=== PATIENT | male | born 1955 | race Caucasian/White ===

== ENCOUNTER 2022-01-04 06:00 | Outpatient (CLI) | payer MEDICARE ==
--- NOTE | 2022-01-04 11:16 | XRAY Report ---
PROCEDURE: Foot 3 View LT INDICATIONS: FOOT PAIN TECHNIQUE: 3 views of the foot were acquired. COMPARISON: None FINDINGS: Bones: Postsurgical changes are seen from first metatarsophalangeal joint arthrodesis with 2 metallic screws. The hardware is intact. There is solid osseous fusion across the joint line. Degenerative sp urring is seen at the dorsal talonavicular joint. Soft tissues: No suspicious soft tissue calcification. IMPRESSION: Postsurgical changes from first metatarsophalangeal joint arthrodesis with solid osseous fusion acros s the joint line. No acute osseous abnormality. Reviewed by: Prince Layne MD on 01/04/2022 11:15 AM PDT Approved by: Prince Layne MD on 01/04/2022 11:15 AM PDT Station ID: [id number]
== END 2022-01-04 23:59 | disposition home or self-care (01) ==
LOC: EDSEX → DI.WOS 06:00
PROVIDERS: ATTEND Orthopaedic Surgery
DX: M79.672 Pain in left foot (principal); Z98.890 Other specified postprocedural states

== ENCOUNTER 2023-08-02 09:41 | Emergency (ER) | payer MEDICARE ==
[2023-08-02 10:06] LABS: BILIRUBIN,URINE NEGATIVE (NEGATIVE); GLUCOSE, URINE (UA) NEGATIVE (NEGATIVE); KETONES,URINE (UA) NEGATIVE (NEGATIVE); LEUKOCYTE ESTERASE, URINE NEGATIVE (NEGATIVE); NITRITE,URINE NEGATIVE (NEGATIVE); OCCULT BLOOD,URINE MODERATE (NEGATIVE); PH,URINE 8.5 PH (5.0-7.5); PROTEIN,URINE 100 mg/dL (NEGATIVE); UROBILINOGEN,URINE 1 (NORMAL) E.U./dL (NORMAL)
[2023-08-02] MEDS ORDERED: SODIUM CHLORIDE 0.9% 1,000 ML IV STA (10:08)
[2023-08-02 10:10] LABS: CLARITY,URINE CLEAR (CLEAR)
[2023-08-02 10:14] LABS: BASOPHILS # (AUTO) 0.1 10^3/uL (0.0-0.1); BASOPHILS % (AUTO) 0.8 %; EOSINOPHILS # (AUTO) 0.4 10^3/uL (0.0-0.7); EOSINOPHILS % (AUTO) 2.6 %; HCT - HEMATOCRIT 49.6 % (42.0-52.0); HGB - HEMOGLOBIN 16.6 g/dL (14.0-18.0); LYMPHOCYTES # (AUTO) 6.2 10^3/uL (1.5-3.5); LYMPHOCYTES % (AUTO) 40.2 %; MEAN CORPUSCULAR HEMOGLOBIN 28.8 pg (27.0-31.0); MEAN CORPUSCULAR HGB CONC 33.5 g/dL (32.0-36.0); MEAN PLATELET VOLUME 8.5 fL (7.4-11.4); MONOCYTES # (AUTO) 1.1 10^3/uL (0.0-1.0); NEUTROPHILS # (AUTO) 7.6 10^3/uL (1.5-6.6); NEUTROPHILS % (AUTO) 49.1 %; PLT - PLATELET COUNT 262 10^3/uL (130-450); RED BLOOD COUNT 5.77 10^6/uL (4.70-6.10); RED CELL DISTRIBUTION WIDTH 14.5 % (12.0-15.0); WHITE BLOOD COUNT 15.5 x10^3/uL (4.8-10.8)
[2023-08-02 10:17] LABS: SLIDE REVIEW? Indicated
[2023-08-02 10:21] LABS: ALBUMIN 4.3 g/dL (3.2-5.5); ALBUMIN/GLOBULIN RATIO 1.3 (1.0-2.2); CALCIUM 9.9 mg/dL (8.5-10.3); POTASSIUM 3.6 mmol/L (3.5-4.5); TOTAL PROTEIN 7.6 g/dL (6.4-8.9)
[2023-08-02 10:24] LABS: BACTERIA,URINE Few /HPF (None Seen); SQUAMOUS EPITHELIAL CELL,UR NONE SEEN (<= Few); WBC,URINE 0-3 /HPF (0-3)
[2023-08-02 10:37] LABS: WBC MORPHOLOGY (MULTIPLE) 2+ REACTIVE LYMPHS (NORMAL)
--- NOTE | 2023-08-02 10:44 | CT Report ---
PROCEDURE: ABDOMEN/PELVIS WO INDICATIONS: R flank pain TECHNIQUE: A CT scan of the abdomen and pelvis was performed without the use of intravenous contrast. Images we re recorded and evaluated at appropriate window settings. Reformats: coronal and sagittal. For radiat ion dose reduction, the following was used: automated exposure control, adjustment of mA and/or kV ac cording to patient size. COMPARISON: None. FINDINGS: Image quality: Excellent. Lung bases and heart: Unremarkable. Liver: No solid mass. Gallbladder and biliary tree: Spleen: No splenomegaly. Pancreas: No pancreatic ductal dilation. Adrenals: No adrenal nodule. Kidneys and ureters: There is right renal enlargement. Mild left and moderate right perinephric fat s een. There is moderate hydronephrosis and mild diffuse right ureteral dilatation. There is a 7 mm rig ht ureterovesical junction calculus. No left hydronephrosis nor ureteral dilatation. Bowel and peritoneum: No bowel distension. No pathologic free fluid. Lymph nodes: No central or retroperitoneal adenopathy. Vessels: No infrarenal aortic aneurysm. PELVIS Reproductive organs: Unremarkable. Bladder: Urinary bladder is decompressed. Pelvic lymph nodes: No pelvic adenopathy by size criteria. Bones: No aggressive osseous abnormality. Other: No significant ventral or inguinal hernia. IMPRESSION: 1. Right ureterovesical junction calculus associated with moderate right hydronephrosis. Reviewed by: Felicia Holcomb MD on 08/02/2023 10:43 AM [facility] Approved by: Felicia Holcomb MD on 08/02/2023 10:43 AM [facility] Station ID: [id number]
[2023-08-02] MEDS ORDERED: MORPHINE 2 MG/ML CARPUJECT IVP STA (11:34)
[2023-08-02] MEDS ORDERED: ONDANSETRON 4 MG/2 ML VIAL IVP STA (11:34)
[2023-08-02] MEDS ORDERED: KETOROLAC 30 MG/ML VIAL IVP STA (11:35)
--- NOTE | 2023-08-02 12:14 | ED Physician Documentation ---
PD HPI ABD PAIN - Stated complaint Stated Complaint: RT SIDE PX/SHAKES/COLD SWEATS - Chief complaint Chief Complaint: Abd Pain - History obtained from History obtained from: Patient - Additional information Additional information: Patient is a 68-year-old male presenting for evaluation of intermittent episodes of right flank pain since Tuesday. He reports having worse pain on Tuesday with associated nausea and an episode of emesis. He reports that the pain comes and goes. Nothing makes it better or worse. It does not wrap around to his abdomen. Denies dysuria or hematuria. Has had prior hernia surgery repair. No chest pain or shortness of air. Denies fevers. Review of Systems Constitutional: denies: Fever Cardiac: denies: Chest pain / pressure Respiratory: denies: Dyspnea GI: reports: Nausea. denies: Abdominal Pain : denies: Dysuria Musculoskeletal: reports: Back pain PD PAST MEDICAL HISTORY - Past Medical History Past Medical History: Yes GI: GERD - Past Surgical History Past Surgical History: Yes General: Other Ortho: Shoulder arthroplasty, Carpal Tunnel surgery, Spine surgery - Present Medications Home Medications: Ambulatory Orders Medication Instructions Recorded Confirmed Ezetimibe [Zetia] 10 mg PO DAILY 08/02/23 08/02/23 LORazepam [Lorazepam] 2 mg PO QPM 08/02/23 08/02/23 Omeprazole Magnesium 20 mg PO DAILY 08/02/23 08/02/23 Ondansetron Odt [Zofran] 4 mg TL Q6H PRN #10 tablet 08/02/23 Ondansetron Odt [Zofran] 4 mg TL Q6H PRN #10 tablet 08/02/23 Oxycodone HCl/Acetaminophen 1 each PO Q6H PRN #14 tablet 08/02/23 [Percocet 5-325 mg Tablet] Sertraline HCl 100 mg PO DAILY 08/02/23 08/02/23 Tamsulosin [Flomax] 0.4 mg PO DAILY #14 cap 08/02/23 Tamsulosin [Flomax] 0.4 mg PO DAILY #14 cap 08/02/23 - Allergies Allergies/Adverse Reactions: Allergies Allergy/AdvReac Type Severity Reaction Status Date / Time codeine AdvReac Nausea Verified 08/02/23 09:49 - Social History Does the pt smoke?: No Smoking Status: Never smoker Does the pt drink ETOH?: No Does the pt have substance abuse?: No Substance Use and Type: Marijuana - Immunizations Immunizations are current?: Yes PD ED PE NORMAL - General General: Alert and oriented X 3, No acute distress, Well developed/nourished - HEENT HEENT: Atraumatic, Moist mucous membranes, Pharynx benign - Neck Neck: Supple, no meningeal sign - Cardiac Cardiac: RRR - Respiratory Respiratory: No respiratory distress - Abdomen Abdomen: Normal bowel sounds, Soft, Non tender, Non distended - Back Back: Other (Right CVA tenderness) - Derm Derm: Warm and dry - Neuro Neuro: Normal speech Results - Vitals Vitals: Vital Signs - 24 hr 08/02/23 08/02/23 08/02/23 09:45 10:09 11:48 Temperature 36.5 C Heart Rate 78 76 81 Respiratory 16 18 16 Rate Blood Pressure 190/84 H 174/89 H 185/99 H O2 Saturation 100 100 100 08/02/23 12:42 Temperature 36.2 C L Heart Rate 73 Respiratory 16 Rate Blood Pressure 148/78 H O2 Saturation 96 Oxygen O2 Source Room air - Labs Labs: Laboratory Tests 08/02/23 08/02/23 08/02/23 09:54 10:00 10:00 WBC 15.5 H RBC 5.77 Hgb 16.6 Hct 49.6 MCV 86.0 MCH 28.8 MCHC 33.5 RDW 14.5 Plt Count 262 MPV 8.5 Neut # (Auto) 7.6 H Lymph # (Auto) 6.2 H Perry # (Auto) 1.1 H Eos # (Auto) 0.4 Baso # (Auto) 0.1 Absolute Nucleated RBC 0.00 Nucleated RBC % 0.0 Manual Slide Review Indicated WBC Morphology 2+ REACTIVE LYMPHS Sodium 138 Potassium 3.6 Chloride 100 L Carbon Dioxide 24 Anion Gap 14.0 H BUN 15 Creatinine 1.0 Estimated GFR (MDRD) 74 L Glucose 151 H Calcium 9.9 Total Bilirubin 1.0 AST 17 ALT 14 Alkaline Phosphatase 107 Total Protein 7.6 Albumin 4.3 Globulin 3.3 Albumin/Globulin Ratio 1.3 Lipase 54 Urine Color YELLOW Urine Clarity CLEAR Urine pH 8.5 H Ur Specific [place] 1.015 Urine Protein 100 H Urine Glucose (UA) NEGATIVE Urine Ketones NEGATIVE Urine Occult Blood MODERATE H Urine Nitrite NEGATIVE Urine Bilirubin NEGATIVE Urine Urobilinogen 1 (NORMAL) Ur Leukocyte Esterase NEGATIVE Urine RBC 11-25 H Urine WBC 0-3 Ur Squamous Epith Cells NONE SEEN Urine Bacteria Few Ur Microscopic Review INDICATED Urine Culture Comments NOT INDICATED PD Medical Decision Making - ED course Complexity details: reviewed results, re-evaluated patient, d/w patient ED course: Patient is a 68-year-old male with intermittent episodes of right flank pain since Tuesday. Vital signs are stable.Abdominal exam is benign. CBC, chemistries, urinalysis were obtained and reviewed. CT scan demonstrates a 7 mm right ureter stone. Patient initially declined any pain medications but pain did increase and patient did receive IV morphine, Toradol, Zofran and fluids w ith improvement in his symptoms. Pain is controlled here. Does not appear septic. Patient is counseled on treatment plan with medications as well as need for close urology follow-up given the size of his stone. He is also counseled on concerning symptoms to return for. Departure - Departure Disposition: Home, Self Care Clinical Impression: Right ureteral stone Condition: Stable Instructions: ED Stone Renal W Colic Follow-Up: Andi Fletcher MD [Provider Admit Priv/Credential] - Prescriptions: Tamsulosin [Flomax] 0.4 mg PO DAILY #14 cap Tamsulosin [Flomax] 0.4 mg PO DAILY #14 cap Oxycodone HCl/Acetaminophen [Percocet 5-325 mg Tablet] 1 each PO Q6H PRN #14 tablet PRN Reason: pain Ondansetron Odt [Zofran] 4 mg TL Q6H PRN #10 tablet PRN Reason: Nausea / Vomiting Ondansetron Odt [Zofran] 4 mg TL Q6H PRN #10 tablet PRN Reason: Nausea / Vomiting Comments: There is a 7 mm stone on the right ureter which is the tube that connects the kidney to the bladder. I am sending medications to [facility] in [place] To help with your symptoms as well as passing the stone.However due to the size of the stone you may need a procedure to help you pass it. Return to the ER with any worsening such as uncontrolled pain, fever. Please follow-up with urology. I have listed the name and information for Dr. Fletcher. I am prescribing a short course of narcotic pain medication for you. These are potentially dangerous and addictive medications that should be used carefully. These medications may constipate you. Take an [id number]-[id number]-[id number] stool softener (docusate) twice daily with plenty of water while taking these medications. If you go 24 hours without a bowel movement, take [id number]-[id number] miralax, per package instructions. Do not drink or drive while taking these medications. If you received narcotic or sedating medications while in the emergency department, do not drive for 24 hours. Store this medication in a safe, secure place and out of reach of children. It is a violation of federal law to give or sell this medication to another person or to use in a manner other than prescribed. The ED will not refill narcotic prescriptions, including prescriptions lost or stolen. To dispose of unwanted medications: 1. [facility] [address] in [place] has a medication drop box. They accept prescription medications (in pill form) Tuesday through Tuesday 9:00 a.m. to 5:00 p.m. 2. The [facility] [employer] accepts prescription medications (in pill form only) for disposal year round. Call for more information. 3. Contact the [facility] for the next [facility] sponsored prescription drug collection event. , [phone], or [phone]; Note that many narcotic pain relievers also contain Tylenol/acetaminophen. Please ensure that your total dose of acetaminophen from all sources does not exceed 3 g (3000 mg) per day. Forms: PCP List Discharge Date/Time: 08/02/23 12:46
[2023-08-02 12:51] VITALS: BP 148/78; O2SAT 96
== END 2023-08-02 12:46 | disposition home or self-care (01) ==
LOC: ED 09:41
DX: N20.1 Calculus of ureter (principal); Z79.899 Other long term (current) drug therapy
CPT/HCPCS: 36415; 80053; 81001; 81003; 83690; 85025; 87086; 96374; 96375; 99284

== ENCOUNTER 2023-08-09 06:53 | Day surgery (SDC) | payer MEDICARE ==
[~2023-08-09 06:53] MED LIST: ceFAZolin 2 GM VIAL ONE
[2023-08-09] MEDS ORDERED: LACTATED RINGERS 1,000 ML IV ONE ×2 (07:11→09:21)
[2023-08-09] MEDS ORDERED: iohexoL-240 10 ML VIAL IVP ONE (07:18)
[2023-08-09] MEDS ORDERED: LIDOCAINE 2% URO-JET 5 ML SYRINGE UR ONE ×2 (07:18→08:54)
--- NOTE | 2023-08-09 08:00 | ANESTHESIA ---
Pre-Anesthesia VS, & Labs - Diagnosis kidney stone - Procedure cysto, uteteroscopy, lazer lithotripsy Vital Signs: Temp Pulse Resp BP Pulse Ox O2 Flow Rate 36 C L 64 15 117/69 98 08/09/23 07:07 08/09/23 07:07 08/09/23 07:07 08/09/23 07:07 08/09/23 07:07 Height: 5 ft 8 in Weight (kg): 67.3 kg Body Mass Index: 22.5 BMI Classification: Normal - NPO >8 hours Home Medications and Allergies Ezetimibe [Zetia] 10 mg PO DAILY 08/02/23 LORazepam [Lorazepam] 2 mg PO QPM 08/02/23 Omeprazole Magnesium 20 mg PO DAILY 08/02/23 Sertraline HCl 100 mg PO DAILY 08/02/23 Allergies/Adverse Reactions: Allergies Allergy/AdvReac Type Severity Reaction Status Date / Time codeine AdvReac Nausea Verified 08/02/23 09:49 msg Allergy Rash Uncoded 08/05/23 15:17 sulfates Allergy Rash Uncoded 08/05/23 15:17 Anes History & Medical History - Anesthetic History Anesthesia Complications: reports: No previous complications - Medical History Cardiovascular: reports: High cholesterol Pulmonary: reports: None Gastrointestinal: reports: GERD Urinary: reports: Kidney stones Musculoskeletal: reports: Osteoarthritis Endocrine/Autoimmune: reports: None Skin: reports: None Smoking Status: Never smoker - Surgical History General: reports: Colonoscopy, EGD, Other Orthopedic: reports: Arthroscopic surgery, Carpal Tunnel surgery, Spine surgery Exam General: Alert, Oriented x3 Mouth Opening: Greater than 4 Fingerbreadths Neck Mobility: Normal Mallampati classification: II Thyromental Distance: greater than 6 cm Respiratory: Lungs clear Cardiovascular: Regular rate, Normal S1, Normal S2 Plan Anesthesia Type: General Consent for Procedure(s) Verified and Reviewed: Yes Code Status: Attempt Resuscitation ASA classification: 2-Mild systemic disease Is this case an emergency?: No
[2023-08-09] MEDS ORDERED: ATROPINE ABBOJECT 1 MG/10 ML SYRINGE IVP PRN (08:03)
[2023-08-09] MEDS ORDERED: HYDROmorphone 0.5 MG/0.5 ML SYRINGE IVP PRN (08:03)
[2023-08-09] MEDS ORDERED: ONDANSETRON 4 MG/2 ML VIAL IVP PRN ×2 (08:03→09:03)
[2023-08-09] MEDS ORDERED: METOCLOPRAMIDE 10 MG/2 ML VIAL IVP PRN (08:03)
[2023-08-09] MEDS ORDERED: fentaNYL 100 MCG/2 ML VIAL IVP PRN (08:03)
[2023-08-09] MEDS ORDERED: ePHEDrine 50 MG/ML VIAL IVP PRN (08:03)
[2023-08-09] MEDS ORDERED: NALOXONE 0.4 MG/ML VIAL IVP PRN (08:03)
[2023-08-09] MEDS ORDERED: MORPHINE 2 MG/ML CARPUJECT IVP PRN (08:03)
[2023-08-09] MEDS ORDERED: fentaNYL 100 MCG/2 ML VIAL ONE (08:17)
[2023-08-09] MEDS ORDERED: MIDAZOLAM 2 MG/2 ML VIAL ONE (08:17)
[2023-08-09] MEDS ORDERED: PROPOFOL 200 MG/20 ML VIAL IVP ONE (08:18)
[2023-08-09] MEDS ORDERED: ROCURONIUM 50 MG/5 ML VIAL ONE (08:18)
[2023-08-09] MEDS ORDERED: DEXAMETHASONE 4 MG/ML VIAL ONE (08:49)
[2023-08-09] MEDS ORDERED: ONDANSETRON 4 MG/2 ML VIAL ONE (08:49)
[2023-08-09] MEDS ORDERED: SUGAMMADEX 200 MG/2 ML VIAL IVP ONE (08:56)
[2023-08-09] MEDS ORDERED: SEVOFLURANE 250 ML LIQUID INH ONE (08:58)
[2023-08-09] MEDS ORDERED: LACTATED RINGERS 1,000 ML IV SCH (09:00)
[2023-08-09] MEDS ORDERED: HYDROcod/ACETAM 5/325 MG TABLET PO PRN (09:03)
--- NOTE | 2023-08-09 09:11 | Discharge Plan ---
Discharge Plan Problem Reviewed?: Yes Disposition: Home, Self Care Condition: Good Prescriptions: Docusate Sodium 100Mg Capsule [Colace 100Mg Capsule] 100 mg PO DAILY #7 cap HYDROcod/ACETAM 5/325 [[place] 5/325] 1 tab PO Q4H PRN #8 tablet PRN Reason: Pain Diet: Regular Activity Restrictions: No Restrictions Shower Restrictions: No Driving Restrictions: No Instruction Topics: Stents Ureteral Additional Instructions or Follow Up instructions: Remove the stent by pulling on the string coming out of your urethra on the morning of the . Bullet with steady pressure until a long plastic tube about a foot long comes out. Do this in the shower as this can spray a little bit of blood and urine. You will be contacted for follow-up with Dr. Fletcher in 3 months time No Smoking: If you smoke, Please STOP! Call for help.
--- NOTE | 2023-08-09 09:15 | OPERATIVE REPORT ---
Operative Report - General Procedure Date: 08/09/23 Planned Procedure: Cystoscopy, right ureteroscopy, laser lithotripsy and stent Pre-Op Diagnosis: right ureteral stone Procedure Performed: Cystoscopy, right ureteroscopy, urethral dilation and stent Post Op Diagnosis: meatal stenosis - Procedure Note Primary Surgeon: Chance Anesthesia Provider: SHALINI Mix Anesthesia Technique: General ET tube Findings: meatal stenosis small bladder diverticula no stone Complications: none - Other Other Information/Narrative: After informed consent was obtained the patient was brought to the OR and laid the supine position. The patient was anesthetized per anesthesia protocols. He was then prepped draped in usual sterile fashion placed in the dorsolithotomy position. A formal timeout was performed reconfirming the patient, procedure and laterality. His meatus was noted be stenotic and so it was dilated from 12 Setswana to 24 Setswana. A 22 Setswana cystoscope was advanced easily into urinary bladder bladder inspected and full there was no masses or lesions. His ureteral orifices were orthotopic. He did have a small posterior wall bladder diverticula almost a Hutch diverticula immediately posterior to the ureteral orifice on the right. Fluoroscopy showed no radiopacities in the pelvis. A sensor wire was placed up the right UO. There was no good of fluid. A short semirigid ureteroscope was advanced up into the mid ureter and there were no stones seen at all. A 6 Setswana 26 cm double-J ureteral stent was placed with good curling noted in the kidney and good curling noted in the bladder. The stent was left on a string and attached to his penis. A Uro-Jet was placed. This concluded the procedure. Patient tolerated the procedure well was brought to PACU after incident. He will follow-up in 3 months time. He will remove the stent himself on
[2023-08-09] MEDS ORDERED: HYDROcod/ACETAM 5/325 MG TABLET ONE (09:59)
[2023-08-09 10:08] VITALS: O2SAT 99
[2023-08-09 10:36] VITALS: BP 119/80
--- NOTE | 2023-08-09 13:34 | ANESTHESIA POST OP EVALUATION ---
Anesthesia Post Eval - Post Anesthesia Eval Vitals: Last Vital Signs Temp 36.6 C 08/09/23 10:30 Pulse 76 08/09/23 10:30 Resp 18 08/09/23 10:30 BP 119/80 08/09/23 10:30 Pulse Ox 99 08/09/23 10:30 O2 Flow Rate CV Function Including HR & BP: Stable Pain Control: Satisfactory Nausea & Vomiting: Negative Mental Status: Baseline Respiratory Status: Airway Patent Hydration Status: Satisfactory Anesthesia Complications: None
--- NOTE | 2023-08-09 14:42 | XRAY Report ---
PROCEDURE: OR C-Arm Procedure INDICATIONS: Cysto, Right Ureteroscopy, Stent Placement FLUORO TIME: 0.01 MIN COMPARISON: None FINDINGS: Fluoroscopic images demonstrating placement of a ureteral stent. The distal aspect of the stent is no t seen on these images. IMPRESSION: Fluoroscopic images demonstrating placement of a ureteral stent. Reviewed by: Oneil Alexander MD on 08/09/2023 2:40 PM PST Approved by: Oneil Alexander MD on 08/09/2023 2:40 PM PST Station ID: [id number]
== END 2023-08-09 06:54 | disposition home or self-care (01) ==
LOC: SDS 06:53
PROVIDERS: ATTEND Urology
PROC: 0T768DZ Dilation of Right Ureter with Intraluminal Device, Via Natural or Artificial Opening Endoscopic (ICD-10-PCS; principal; 2023-08-09 08:30)
DX: N35.911 Unspecified urethral stricture, male, meatal (principal); N32.3 Diverticulum of bladder; Z87.442 Personal history of urinary calculi
CPT/HCPCS: 52332; 52351; A9270; C1758; C2617; J3490; J7120; Q9966

== ENCOUNTER 2024-02-08 08:00 | Outpatient (CLI) | payer MEDICARE | END 2024-02-08 23:59 | disposition home or self-care (01) | LOC: LAB 08:00 | PROVIDERS: ATTEND Urology | DX: N40.0 Benign prostatic hyperplasia without lower urinary tract symptoms (principal) | CPT/HCPCS: 87086 ==

== ENCOUNTER 2024-05-09 10:59 | Emergency (ER) | payer MEDICARE ==
--- NOTE | 2024-05-09 11:20 | ED Physician Documentation ---
History of Present Illness - Stated complaint Stated Complaint: R HAND LAC - Chief complaint Chief Complaint: Laceration - History obtained from History obtained from: Patient - Additonal information Additional information: Patient is a 68-year-old male with no significant past medical history presents to the emergency department with right hand laceration along fifth metacarpal. He notes his tractor ran into a ceramic pot and he went to go clean it up when he tripped and fell on it. He denies any feelings of foreign body in his right hand he denies any numbness tingling to his fifth or fourth digit he denies any decreased range of motion. He notes he is right-handed. Last tetanus was in 2018. He denies any blood thinners at home. PD PAST MEDICAL HISTORY - Past Medical History Past Medical History: Yes Cardiovascular: High cholesterol Respiratory: None Neuro: None Endocrine/Autoimmune: None GI: GERD : Kidney stones HEENT: Chronic vision loss Psych: Depression, Anxiety Musculoskeletal: Osteoarthritis Derm: None - Past Surgical History Past Surgical History: Yes General: Colonoscopy, EGD, Other Ortho: Arthroscopic surgery, Carpal Tunnel surgery, Spine surgery - Present Medications Home Medications: Ambulatory Orders Medication Instructions Recorded Confirmed Ezetimibe [Zetia] 10 mg PO DAILY 08/02/23 08/09/23 LORazepam [Lorazepam] 2 mg PO QPM 08/02/23 08/09/23 Omeprazole Magnesium 20 mg PO DAILY 08/02/23 08/09/23 Sertraline HCl 100 mg PO DAILY 08/02/23 08/09/23 - Allergies Allergies/Adverse Reactions: Allergies Allergy/AdvReac Type Severity Reaction Status Date / Time codeine AdvReac Nausea Verified 05/09/24 11:09 msg Allergy Rash Uncoded 05/09/24 11:09 sulfates Allergy Rash Uncoded 05/09/24 11:09 - Social History Does the pt smoke?: No Smoking Status: Never smoker Does the pt drink ETOH?: No Does the pt have substance abuse?: No - Immunizations Immunizations are current?: Yes - POLST Patient has POLST: No PD ED PE NORMAL - Vitals Vital signs reviewed: Yes - General General: Alert and oriented X 3 - HEENT HEENT: Atraumatic - Neck Neck: Supple, no meningeal sign, No bony TTP, No JVD, No bruit - Cardiac Cardiac: RRR, No murmur, No gallop, No rub - Respiratory Respiratory: No respiratory distress, Clear bilaterally - Abdomen Abdomen: Normal bowel sounds - Derm Derm: Normal color, Warm and dry (good capillary refill < 3 seconds), Other - Free text exam Free text exam: Laceration approximately 2 cm in size along distal metacarpal below proximal phalanx no crossing of the joint no signs of foreign body no persistent bleeding on examination. Results - Vitals Vitals: Vital Signs - 24 hr 05/09/24 05/09/24 11:02 12:54 Heart Rate 89 60 Respiratory 17 Rate Blood Pressure 152/93 H 162/85 H O2 Saturation 96 98 Oxygen O2 Source Room air Procedures - Laceration (location) right hand laceration Wound type: Linear Neurovascular status: Sensory intact, Motor intact, Vascular intact Tendon involvement: Tendon intact Anesthesia: Lidocaine 2% Wound preparation: Hibiclens, Irrigated copiously NS Skin layer closure: Nylon, Sutures - enter # (6) Other: Patient tolerated well, No complications, Neurovascular intact, Dressing applied, Tetanus UTD PD Medical Decision Making - ED course Complexity details: reviewed old records, reviewed results ED course: Patient is a 68-year-old male presenting to the emergency department with 2 lacerations of right hand after falling on a ceramic pot shortly prior to arrival. He is not on any blood thinners. Last tetanus was in 2018. He has no numbness or tingling full range of motion at DIP and PIP joints and MCP joint of right fifth digit.Tetanus is up to date as last one was in 2018. Wound was cleaned thoroughly here in the emergency department. Patient had 6 stitches placed to right hand. Full range of movement remains intact. Patient instructed to have sutures removed in 10 days. Keep wound clean dry change dressing in 24 hours. Patient instructed to monitor for any discharge from the wound redness swelling warmth or fevers.Patient tolerated procedure well and is agreeable with this plan. He will follow-up with his PCP in 7 to 10 days and will have wound recheck done at that time. Patient ins tructed to return with any numbness tingling or difficulty bending or extending his finger. Departure - Departure Disposition: 01 Home, Self Care Clinical Impression: Laceration of right hand, Laceration Condition: Good Instructions: ED Laceration All Comments: You are seen here in the emergency department for your laceration to your right hand. Your workup here showed 6 sutures were placed and you need to have these removed in 10 days. Follow-up with your PCP in the outpatient setting to have them removed and for wound recheck. If you develop any redness swelling warmth fevers discharge from the wound return to the emergency department. Keep wound clean dry do not soak in water and you can change dressing in 24 hours. You can apply topical antibiotic like bacitracin or Neosporin to it when you change the dressing. Forms: PCP List
[2024-05-09] MEDS: lidocaine 1% 20 ML MDV SUBQ ONE (12:28)
[2024-05-09] MEDS: ACETAMINOPHEN 500 MG TABLET PO STA (12:29)
[2024-05-09 13:04] VITALS: BP 162/85; O2SAT 98
== END 2024-05-09 13:18 | disposition home or self-care (01) ==
LOC: ED 10:59
DX: S61.411A Laceration without foreign body of right hand, initial encounter (principal); W01.110A Fall on same level from slipping, tripping and stumbling with subsequent striking against sharp glass, initial encounter; E78.00 Pure hypercholesterolemia, unspecified; Z79.899 Other long term (current) drug therapy
CPT/HCPCS: 12001; 99283; A9270